=== PATIENT | female | born 1995 | race Caucasian/White ===

== ENCOUNTER → 2016-07-09 | Outpatient (CLI) | payer OTHER ==
--- NOTE | 2016-07-09 09:32 | MR ---
EXAMINATION TYPE: MR pituitary wo/w con DATE OF EXAM: 07/09/2016 8:58 AM COMPARISON: 07/16/2014 HISTORY: 20-year-old female, benign neoplasm of pituitary Technique: Multiplanar, multisequence images of the pituitary gland were obtained before and after ad ministration of 9 mL intravenous MultiHance gadolinium contrast. FINDINGS: Redemonstrated is the sellar mass involving the pituitary gland. This appears to have slightly decrea sed in size now measuring 1.0 cm craniocaudal by 1.1 cm wide versus 1.2 x 1.2 cm, previously. It cont inues to show T2 and T1 isointense signal on precontrast series and mild heterogeneous enhancement. T he intrinsic low signal areas previously seen that were suggested to have possibly represented calcif ications also appear decreased in size, sagittal T1 image 9 and 10. The lesion continues to show heterogeneous postcontrast enhancement. There is now less suprasellar extension. Whereas, previously, the mass closely approached and may hav e abutted the optic chiasm, there is now a separation plane of approximately 2.3 mm. There is no intra or suprasellar mass. Pituitary stalk is seen enhancing with contrast and shows slight residual leftward deviation. The optic chiasm and anterior third ventricle are well visualized and not displaced or compressed. IMPRESSION: 1. 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 2. There is less suprasellar extension and now a separation plane with the optic chiasm of 2.3 mm.
== END | disposition home or self-care (01) ==
LOC: RADMRIMAIN 07:58
PROVIDERS: ATTEND Neurological Surgery
DX: D35.2 Benign neoplasm of pituitary gland (principal)
CPT/HCPCS: 70553; A9577